=== PATIENT | female | born 1975 | race Caucasian/White ===

== ENCOUNTER 2017-09-14 08:26 | Emergency (ER) | payer BC ==
[2017-09-14 08:33] VITALS: BP 129/86; PULSE 61; TEMP 98.6; BMI 32.5
[2017-09-14] MEDS ORDERED: KETOROLAC TROMETHAMINE 30 MG/1 ML VIAL IM ONE (08:42)
[2017-09-14] MEDS ORDERED: diazePAM 5 MG TABLET PO ONE (08:44)
[2017-09-14] MEDS ORDERED: KETOROLAC TROMETHAMINE 30 MG/1 ML VIAL ONE (08:58)
[2017-09-14] MEDS ORDERED: diazePAM 5 MG TABLET ONE (08:58)
--- NOTE | 2017-09-14 09:07 | PDOC ---
History of Present Illness - General Chief Complaint: Back Pain Stated Complaint: LOWER BACK PAIN History Source: Patient Exam Limitations: No Limitations - History of Present Illness Initial Comments: 09/14/17 08:52 42 yo F with no pmhx here w complain of back pain. has had intermittent back pain for last few weeks, suddenly became worse with last 2 days. pt was bending and suddenly felt severe pain, no new numbness or weakness . no bowel or bladder incontinence. no past surgery or injuries. no f/c pain worse with sitting, and going from sitting to standing and lying in bed. Past History - Past Medical History Allergies/Adverse Reactions: Allergies Allergy/AdvReac Type Severity Reaction Status Date / Time No Known Allergies Allergy Verified 09/14/17 08:27 Home Medications: Ambulatory Orders Diazepam [Valium] 5 mg PO Q8H PRN #15 tablet MDD 3 09/14/17 Ibuprofen [Motrin -] 600 mg PO TID PRN #90 tablet MDD 3 09/14/17 COPD: No - Suicide/Smoking/Psychosocial Hx Smoking History: Never smoked Have you smoked in the past 12 months: No Information on smoking cessation initiated: No Hx Alcohol Use: No Drug/Substance Use Hx: No Substance Use Type: None Review of Systems - Review of Systems Constitutional: No: Chills, Diaphoresis, Fever HEENTM: No: Eye Pain Cardiac (ROS): No: Chest Pain, Edema ABD/GI: No: Abdominal Distended Musculoskeletal: Yes: Back Pain. No: Joint Pain, Muscle Weakness, Neck Pain All Other Systems: Reviewed and Negative *Physical Exam - Vital Signs Last Vital Signs Temp Pulse Resp BP Pulse Ox 98.6 F 61 20 129/86 100 09/14/17 08:26 09/14/17 08:26 09/14/17 08:26 09/14/17 08:26 09/14/17 08:26 - Physical Exam General Appearance: Yes: Appropriately Dressed Neck: positive: Trachea midline Respiratory/Chest: positive: Lungs Clear, Normal Breath Sounds Cardiovascular: positive: Regular Rhythm, Regular Rate, S1, S2 Gastrointestinal/Abdominal: positive: Normal Bowel Sounds, Flat, Soft. negative : Tender Musculoskeletal: positive: Normal Inspection, Other (paraspinal muscle spasm lumbosacral area. muscle spasm ). negative: CVA Tenderness, Vertebral Tenderness Extremity: positive: Normal Capillary Refill, Normal Inspection Integumentary: positive: Normal Color, Dry, Warm Neurologic: positive: laborer mine II-XII NML intact, Fully Oriented, Alert, Normal Mood/ Affect, Motor Strength 5/5, Other (sensation intact bilateral lower extremities. strength 5/5. ) Medical Decision Making - Medical Decision Making 09/14/17 09:10 42-year-old female no past medical history here with low back strain. Normal neurological exam and palpable muscle spasm in the lumbosacral region. Plan NSAIDs are anti-inflammatories and muscle relaxers recommended to the patient follow up with a primary doctor for referral for physical therapy. We'll also give her referral for neurology warning signs regarding weakness numbness bowel bladder incontinence didn't patient to prompt repeat evaluation *DC/Admit/Observation/Transfer Diagnosis at time of Disposition: Low back strain - Discharge Dispostion Disposition: HOME Condition at time of disposition: Improved - Prescriptions Prescriptions: Diazepam [Valium] 5 mg PO Q8H PRN #15 tablet MDD 3 PRN Reason: Lower Back Pain Ibuprofen [Motrin -] 600 mg PO TID PRN #90 tablet MDD 3 PRN Reason: Pain - Referrals Referrals: Jayant Hightower MD [Staff Physician] - - Patient Instructions Printed Discharge Instructions: Low Back Pain Additional Instructions: take motrin 600 mg every 8 hrs as needed for pain. you can take valium 5 mg every 8 hrs as needed for muscle spasm. return for any weakness, numbness, bowel or bladder incontinence or any concerns. follow up with your regular doctor to discuss a referral for physical therapy. do not take valium and drive or mix with alcohol as it can make you sleepy. - Post Discharge Activity
== END 2017-09-14 10:01 | disposition home or self-care (01) ==
LOC: FER 08:26
PROC: 3E0133Z Introduction of Anti-inflammatory into Subcutaneous Tissue, Percutaneous Approach (ICD-10-PCS; principal; 2017-09-14)
DX: S39.012A Strain of muscle, fascia and tendon of lower back, initial encounter (principal); X58.XXXA Exposure to other specified factors, initial encounter; Y93.9 Activity, unspecified; Y92.9 Unspecified place or not applicable
CPT/HCPCS: 99282-25